=== PATIENT | male | born 2000 | race Two or more races ===

== ENCOUNTER 2025-05-06 09:29 | Emergency (ER) | payer MEDICAID, SELFPAY ==
[2025-05-06 09:44] VITALS: BP 131/75; PULSE 81; RESP 18; TEMP 36.9; O2SAT 99; BMI 24.3
--- NOTE | 2025-05-06 10:01 | XR_ITS ---
Examination: Knee bilateral, 6 views Technique: Knee AP, lateral, oblique each knee total 6 views Date and time of exam: May 06, 2025, 1117 hours INDICATIONS: Bilateral knee pain 2 days no trauma. FINDINGS: Adequate bone density. Minimal bilateral narrowing medial joint spaces No fractures or dislocations No opaque foreign bodies IMPRESSION: Minimal bilateral narrowing medial joint spaces
--- NOTE | 2025-05-06 10:01 | EDNOTE_ITS ---
Lower Extremity Injury RME/HPI General Chief Complaint: Extremity Injury, Lower Stated Complaint: BILATERAL KNEE PAIN Time Seen by Provider: 05/06/25 09:35 Arrival date/time: 05/06/25 09:29 Related Data Previous Rx's ?Medication ?Instructions ?Recorded ibuprofen 800 mg tablet 800 mg PO TID PRN pain #30 t abs 01/05/24 cane #1 ea 05/06/25 naproxen 500 mg tablet 500 mg PO BID PRN pain #14 t abs 05/06/25 Allergies Allergy/AdvReac Type Severity Reaction Status Date / Time No Known Allergies Allergy Verified 01/05/24 08:17 ED Exam Narrative Physical exam: Constitutional: Vital Signs Reviewed. Well appearing. No acute distress. Not toxic appearing. Head: Normocephalic, atraumatic. Eyes: Conjunctiva clear. ENT: Mucous membranes moist. Neck: Trachea midline. Normal range of motion. No nuchal rigidity. Respiratory: Normal effort. No respiratory distress or accessory muscle use. Neuro: Alert and oriented. Speech normal. No focal gross motor or sensory deficits observed. Skin: Warm, dry, normal color. Lower extremities: Negative ecchymosis, erythema, edema, gross deformities of the lower extremities bilaterally. Compartments remain soft lower extremities bilaterally. Positive tenderness to right patella tendon and anterior knee. Negative anterior posterior draw for right knee. Left knee with tenderness to palpation to the medial joint line. Positive Shawn's for left knee. Normal range of motion, strength 4+ out of 5 secondary to pain for lower extremities bilaterally. Dorsalis pedis pulse 2+ regular rate and rhythm for lower extremities bilaterally. Psych: Pleasant. Normal affect. Cooperative. Course Quality Measures none Orders Category Date Time Status Apply knee immobilizer NOW Care 05/06/25 10:01 Completed Miscellaneous Nursing Order X1 Care 05/06/25 10:02 Completed XR knee BI 3V Stat Exams 05/06/25 10:01 Completed Ibuprofen Tab [Motrin Tab] Med 05/06/25 10:01 Discontinued 400 mg PO X1 ONE Vital Signs Vital signs: Vital Signs Temperature 98.5 F 05/06/25 09:44 Pulse Rate 81 05/06/25 09:44 Respiratory Rate 18 05/06/25 09:44 Blood Pressure 131/75 H 05/06/25 09:44 Pulse Oximetry (%) 99 05/06/25 09:44 Oxygen Delivery Method Room Air 05/06/25 09:44 Extremity Injury, Lower MDM Narrative MDM Narrative:: MDM: Concern for internal knee derangement on left knee resulting in effusion from sprain versus strain versus occult fracture or dislocation and concern for anterior knee pain for right knee at the patella tendon concerning for tendinitis No infectious etiology and low suspicion for septic arthritis given lack of circumferential erythema, heat, irritable joint as patient has a fairly good mid range motion but is painless Extremity remains distally neurovascular intact with soft compartments X-ray without gross fracture or bony malalignment Plan for RICE therapy, knee immobilizer, cane, Tim wrap, pain and nausea management as needed f/u with pmd and ortho in 1-2 days, strict ER return pre cautions Patient data External records reviewed:: [facility] previous records Clinical information provided by:: patient Social determinants that could affect healthcare access:: other (specify) Patient has the following chronic illnesses:: As noted How is presenting disease/condition affected by chronic disease/condition?: uneffected by Evaluation data The following diagnostics were reviewed and interpreted by me:: other (specify) Lab and/or radiology exams considered but not ordered:: Additional Labs and radiology considered, but not ordered as they were not clinically indicated at this time. Interpretation Summary: As noted Medications / Prescriptions Medications or Prescriptions considered but not ordered:: I ordered medications based on the patient?s clinical needs and assessment, as documented in the chart. For medications not prescribed, they were not indicated for the patient's current condition, and I determined they were unnecessary at this time to avoid potential risks or complications. Medication administrations:: Medication Administration History Discontinued Medications Ibuprofen (Ibuprofen Tab 400 Mg Tablet) 400 mg PO X1 ONE Stop: 05/06/25 10:02 Last Admin: 05/06/25 10:39 Dose: 400 mg Documented By: As noted Consultations Consultation(s) initiated? (list below): No Diagnosis Most likely diagnosis given after review of the tests above:: As noted Admission Indicated Admission indicated?: not indicated Admission Request Was there a request for admission?: No Disposition Plan Disposition Plan: Discharge Discharge Attestation Discharge Attestation: The patient and all family members were given an opportunity to ask questions and understood the discharge instructions. Discharge instructions specifically effects, indications for sooner follow up or return to the emergency department, and the expected course of current diagnosis. Patient condition: Stable Discharge Plan Plan Patient Disposition: HOME (Self Care) Patient condition on transfer: Stable Prescriptions/Referrals Prescriptions/Med Rec: New (DME) cane Device See Rx Instructions .Route Qty: 1 0RF Rx Instructions: As directed naproxen 500 mg tablet 500 mg PO BID PRN (Reason: pain) Qty: 14 0RF Rx Instructions: take wtih food and 8 oz of water No Action ibuprofen 800 mg tablet 800 mg PO TID PRN (Reason: pain) Qty: 30 0RF Referrals: No Primary/Family,Physician [Primary Care Provider] - In 1 week Problem List Clinical Impression: Bilateral knee pain Patient/Caregiver Discharge Instructions Education Materials: Knee Pain Additional Instructions: Follow up with your primary medical doctor and orthopedic doctor within 48 hours. Return to the Emergency Room immediately for any new, worsening, continuing symptoms or any concerns at all. Return to the Emergency Room within 48 hours if you are unable to follow up with your primary medical doctor and an orthopedic doctor within 48 hours. Print Language: Iranian Stand Alone Forms: Sindy Award Info., Patient Portal Info Letter PA/MARINE GEOLOGIST Supervising Physician PA/MARINE GEOLOGIST Supervising Physician: Dr. Wilkerson
--- NOTE | 2025-05-06 10:03 | EDNOTE_ITS ---
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 Denies any direct trauma, fever, numbness, tingling, weakness, rash. Related Data Previous Rx's ?Medication ?Instructions ?Recorded ibuprofen 800 mg tablet 800 mg PO TID PRN pain #30 t abs 01/05/24 cane #1 ea 05/06/25 naproxen 500 mg tablet 500 mg PO BID PRN pain #14 t abs 05/06/25 Allergies Allergy/AdvReac Type Severity Reaction Status Date / Time No Known Allergies Allergy Verified 01/05/24 08:17 ED Exam Narrative Physical exam: Constitutional: Vital Signs Reviewed. Well appearing. No acute distress. Not toxic appearing. Head: Normocephalic, atraumatic. Eyes: Conjunctiva clear. ENT: Mucous membranes moist. Neck: Trachea midline. Normal range of motion. No nuchal rigidity. Respiratory: Normal effort. No respiratory distress or accessory muscle use. Neuro: Alert and oriented. Speech normal. No focal gross motor or sensory def icits observed. Skin: Warm, dry, normal color. Lower extremities: No gross deformities of lower extremities bilaterally. Negative ecchymosis, erythema, heat, effusion. right knee with tenderness to the patella tendon anteriorly. Left knee with tenderness to the medial joint line. Normal range of motion, strength 5 out of 5 for knees bilaterally. Psych: Pleasant. Normal affect. Cooperative. Course Quality Measures none Orders Category Date Time Status Apply knee immobilizer NOW Care 05/06/25 10:01 Active Miscellaneous Nursing Order X1 Care 05/06/25 10:02 Active XR knee BI 3V Stat Exams 05/06/25 10:01 Completed Ibuprofen Tab [Motrin Tab] Med 05/06/25 10:01 Discontinued 400 mg PO X1 ONE Vital Signs Vital signs: Vital Signs Temperature 98.5 F 05/06/25 09:44 Pulse Rate 81 05/06/25 09:44 Respiratory Rate 18 05/06/25 09:44 Blood Pressure 131/75 H 05/06/25 09:44 Pulse Oximetry (%) 99 05/06/25 09:44 Oxygen Delivery Method Room Air 05/06/25 09:44 Extremity Injury, Lower MDM Narrative MDM Narrative:: MDM: Concern for internal knee derangement resulting in effusion from sprain versus strain versus occult fracture or dislocation of L knee and patellar tendonitis of R knee No infectious etiology and low suspicion for septic arthritis given lack of circumferential erythema, heat, irritable joint as patient has a fairly good mid range motion but is painless Extremity remains distally neurovascular intact with soft compartments X-ray without gross fracture or bony malalignment Plan for RICE therapy, crutches WBAT and knee immobilizer for L knee and young wrap for R knee, pain and nausea management as needed f/u with pmd and ortho in 1-2 days, strict ER return precautions Patient data External records reviewed:: [facility] previous records Clinical information provided by:: patient Social determinants that could affect healthcare access:: none Patient has the following chronic illnesses:: As noted How is presenting disease/condition affected by chronic disease/condition?: no chronic disease Evaluation data The following diagnostics were reviewed and interpreted by me:: other (specify) Lab and/or radiology exams considered but not ordered:: Additional Labs and radiology considered, but not ordered as they were not clinically indicated at this time. Interpretation Summary: Minimal bilateral narrowing of the knee joint Medications / Prescriptions Medications or Prescriptions considered but not ordered:: I ordered medications based on the patient?s clinical needs and assessment, as documented in the chart. For medications not prescribed, they were not indicated for the patient's current condition, and I determined they were unnecessary at this time to avoid potential risks or complications. Medication administrations:: Medication Administration History Discontinued Medications Ibuprofen (Ibuprofen Tab 400 Mg Tablet) 400 mg PO X1 ONE Stop: 05/06/25 10:02 Last Admin: 05/06/25 10:39 Dose: 400 mg Documented By: As noted Consultations Consultation(s) initiated? (list below): No Diagnosis Extremity Injury, Lower Differential Diagnosis: acute internal derangement of knee Most likely diagnosis given after review of the tests above:: As noted Admission Indicated Admission indicated?: not indicated Admission Request Was there a request for admission?: No Disposition Plan Disposition Plan: Discharge Discharge Attestation Discharge Attestation: The patient and all family members were given an opportunity to ask questions and understood the discharge instructions. Discharge instructions specifically effects, indications for sooner follow up or return to the emergency department, and the expected course of current diagnosis. Patient condition: Stable Discharge Plan Plan Patient Disposition: HOME (Self Care) Patient condition on transfer: Stable Prescriptions/Referrals Prescriptions/Med Rec: New (DME) cane Device See Rx Instructions .Route Qty: 1 0RF Rx Instructions: As directed naproxen 500 mg tablet 500 mg PO BID PRN (Reason: pain) Qty: 14 0RF Rx Instructions: take wtih food and 8 oz of water No Action ibuprofen 800 mg tablet 800 mg PO TID PRN (Reason: pain) Qty: 30 0RF Referrals: No Primary/Family,Physician [Primary Care Provider] - In 1 week Problem List Clinical Impression: Bilateral knee pain Patient/Caregiver Discharge Instructions Education Materials: Knee Pain Additional Instructions: Follow up with your primary medical doctor and orthopedic doctor within 48 hours. Return to the Emergency Room immediately for any new, worsening, continuing symptoms or any concerns at all. Return to the Emergency Room within 48 hours if you are unable to follow up with your primary medical doctor and an orthopedic doctor within 48 hours. Print Language: Azeri Stand Alone Forms: Sindy Award Info., Patient Portal Info Letter PA/HIDE AND SKIN COLERER Supervising Physician PA/POLLO Supervising Physician: Dr. Wilkerson
[2025-05-06] MEDS: IBUPROFEN TAB 400 MG TABLET PO (10:39)
[2025-05-06 15:57] VITALS: BP 126/83; PULSE 59; RESP 18; TEMP 36.5; O2SAT 99
== END 2025-05-06 16:00 | disposition home or self-care (01) ==
PROVIDERS: Emergency Provider Physician Assistant
DX: M25.562 Pain in left knee (principal); M25.561 Pain in right knee
CPT/HCPCS: 73562; 99282; A9270